=== PATIENT | male | born 1940 | race Caucasian/White ===

== ENCOUNTER 2017-05-14 09:22 | Outpatient (CLI) | payer MEDICARE, BC ==
[2015-08-13 10:44] VITALS: O2SAT 98
== END 2017-05-14 09:23 | disposition home or self-care (01) | DRG 556 ==
LOC: CONVCARE 09:22
PROVIDERS: ATTEND Orthopaedic Surgery
DX: M25.511 Pain in right shoulder (principal); S43.491A Other sprain of right shoulder joint, initial encounter; S46.011A Strain of muscle(s) and tendon(s) of the rotator cuff of right shoulder, initial encounter
CPT/HCPCS: 73221